=== PATIENT | male | born 1955 | race Caucasian/White ===

== ENCOUNTER 2022-08-23 08:40 | Emergency (ER) | payer MEDICARE, BC ==
[2022-08-23] MEDS ORDERED: Doxycycline 100 MG Cap PO ONE (09:58)
[2022-08-23] MEDS ORDERED: Azithromycin 250 MG Tab PO STA (10:00)
== END 2022-08-23 10:36 | disposition home or self-care (01) ==
LOC: MW.ED 08:40
DX: J40 Bronchitis, not specified as acute or chronic (principal)
CPT/HCPCS: 71046; 99284; A9270